=== PATIENT | male | born 1960 | race Caucasian/White ===

== ENCOUNTER → 2021-08-27 14:02 | Outpatient (CLI) | payer OTHER, SELFPAY ==
[2021-08-27 15:10] LABS: COVID19 -Nasal RAPID Negative (Negative)
== END ==
PROVIDERS: Referring Provider Internal Medicine Gastroenterology; Visit Provider Family Medicine Sleep Medicine
DX: Z20.822 Contact with and (suspected) exposure to COVID-19 (principal)
CPT/HCPCS: 87635; C9803

== ENCOUNTER 2021-08-30 06:44 | Day surgery (SDC) | payer OTHER, SELFPAY ==
[2021-08-30] MEDS: SODIUM CHLORIDE 0.9% 1,000 ML 100 ML IV (07:08)
[2021-08-30 07:11] VITALS: BP 133/78; PULSE 65; RESP 18; TEMP 36.6; O2SAT 98; BMI 27.1
--- NOTE | 2021-08-30 07:55 | PM.HP.1 ---
History of Present Illness History of Present Illness Date Patient Seen: 08/30/21 Time Patient Seen: 07:55 Chief complaint: SDC Narrative: Personal history of colon polyps. I reviewed my note from last month. Patient History Family & Social History Social History: household members spouse Tobacco & Substance use: Smoking Status Never smoker alcohol intake current alcohol intake frequency a few times a week Substance Use Type does not use Meds Home Medications and Allergies Home Medications Medication Instructions Recorded Confirmed Type Naproxen Sodium 250 mg PO PRN #0 09/30/10 History diazepam 5 mg tablet (Valium) 5 mg PO PRN #0 09/30/10 History methadone 5 mg tablet 5 mg PO PRN #0 09/30/10 History Allergies Allergy/AdvReac Type Severity Reaction Status Date / Time ASPIRIN Allergy Mild upset Uncoded 08/30/21 07:09 stomach and nausea OXYCODONE Allergy Mild violent, Uncoded 08/30/21 07:09 mean PENICILLIN Allergy Mild almost Uncoded 08/30/21 07:09 when a baby Review of Systems Review of Systems ROS: Yes All systems reviewed with the patient and are negative except as otherwise documented Exam Vital Signs (past 8 hours): - 08/30/21 07:11 Temperature 97.8 F Pulse Rate 65 Respiratory Rate 18 Blood Pressure 133/78 Pulse Oximetry 98 Oxygen Delivery Method Room Air Const General: cooperative and comfortable Orientation: alert HENMT Head: normocephalic Ears: external ears normal Nose: external nose normal Face and sinus: normal facial exam Mouth: oral mucosae normal Eyes General: appearance normal, both eyes and all related structures Neck Neck: normal visual inspection Chest Chest: normal inspection of the chest Resp Effort & Inspection: normal respiratory effort Cardio Rate: regular rate GI Inspection: normal to inspection Skin General: no rashes or lesions noted and No jaundice Neuro General: patient alert and moves all extremities Cognition: normal cognition Speech: speech normal Extrem General: no pedal edema Psych Appearance: grossly normal Assessment & Plan Assessment & Plan narrative: 60-year-old male with a personal history of colon polyps. Colonoscopy is planned for today. Time Spent With Patient Critical Care time: I spent a total of [] minutes of critical care time on this patient's care today; this time is exclusive of procedural time.
--- NOTE | 2021-08-30 07:56 | PM.PREOP ---
Pre-operative Note COVID-19 COVID-19 status: Negative Result date/Date tested (Pos, Neg/Pending): 08/27/21 Criteria for continued procedure: Possibility delay results in more complex future surgery or treatment Interval Note History & Physical reviewed/Exam performed by Physician: Yes Changes to H&P: No ASA Class (for procedural sedation): II
--- NOTE | 2021-08-30 08:17 | SUR.OPER ---
SHORT PERIOD OF EXTERNAL PRESSURE
--- NOTE | 2021-08-30 08:24 | P.OP.COLON_ITS ---
Operative Date/Time/Diagnoses Date of procedure: 08/30/21 Time of procedure: 08:24 Pre-op diagnosis: Colon polyps history Post-op diagnosis: same Procedure & Clinicians Study performed: Colonoscopy Same procedure as scheduled: Yes Indications: Colon polyps history Surgeon: Prashant Hankins Procedure Notes SCOAP/Timeout: Done Procedure in detail: After the risks and benefits were explained, written and verbal informed consent was obtained. The patient was brought into the procedure room and placed into the left lateral decubitus position. Please see nurse branch operations specialist notes for sedation details. Digital rectal examination was accomplished. The scope was introduced into the patient and advanced under direct visualization to the cecum as identified by the appendiceal orifice and ileocecal valve. The scope was s lowly withdrawn to carefully examine the mucosa for any defects or lesions. Comprehensive imaging was accomplished throughout the rectum including the dentate line. The colon was decompressed, the scope was then removed from the patient who tolerated the procedure well. Adult colonoscope Bowel prep adequate Scope withdrawal time: 6 minutes Sedation minutes: 20 Specimen(s): none sent Complications: none Impression: Slightly redundant colon. No significant polyps mass lesions or inflammatory features identified throughout. Grade 1 internal hemorrhoids. Endoscopic diagnosis: grade 1 hemorrhoids Post-procedure Plan for aftercare: Considering prior history of colon polyps, repeat colonoscopy is suggested for 7 years. Disposition: PACU
[2021-08-30 08:26] VITALS: BP 112/65; PULSE 53; RESP 16; TEMP 35.9; O2SAT 96
[2021-08-30 08:31] VITALS: BP 98/63; PULSE 64; RESP 14; O2SAT 96
[2021-08-30 08:38] VITALS: BP 102/67; PULSE 57; RESP 16; TEMP 35.9; O2SAT 95
== END 2021-08-30 09:09 | disposition home or self-care (01) ==
PROVIDERS: Referring Provider Internal Medicine Gastroenterology; Visit Provider Internal Medicine Gastroenterology
PROC: 0DJD8ZZ Inspection of Lower Intestinal Tract, Via Natural or Artificial Opening Endoscopic (ICD-10-PCS; CPT 45378; principal; 2021-08-30 08:00)
DX: Z12.11 Encounter for screening for malignant neoplasm of colon (principal); Z86.010 Personal history of colon polyps; K64.0 First degree hemorrhoids
CPT/HCPCS: 45378

== ENCOUNTER → 2024-11-08 10:39 | Outpatient (CLI) | payer OTHER, SELFPAY ==
--- NOTE | 2024-11-08 10:42 | DI.MRI.S_ITS ---
PROCEDURE: MR LUMBAR SPINE WO CON INDICATIONS: low back pain, rt groin pain TECHNIQUE: Noncontrast sagittal T1 spin echo and T2 fast echo, sagittal STIR, and T2 fast spin echo through the lumbar spine. In cases with scoliosis, additional coronal T2 fast spin echo may be performed. COMPARISON: None. FINDINGS: Image quality: Excellent. Alignment and Curvature: There is normal bony alignment. Bone Marrow: Degenerative endplate changes, most pronounced at L3-L4. Marrow is of normal overall signal. No acute vertebral body compression fractures. Spinal Cord: Conus medullaris terminates at the L1-L2 level. Visualized cord demonstrates normal signal and size. Paraspinous Soft Tissues: No paravertebral masses. T12-L1: Normal appearance. L1-L2: Normal appearance. L2-L3: Disc desiccation and mild height loss. Mild disc bulge. No central canal or neural foraminal stenosis. L3-L4: Disc desiccation and moderate height loss. Mild disc bulge. Facet arthropathy. No significant central canal stenosis. Mild right and no left neural foraminal stenosis. L4-L5: Facet arthropathy. No central canal stenosis. No significant neural foraminal stenosis. L5-S1: Disc desiccation and severe height loss. Minimal disc bulge. Facet arthropathy. No central canal stenosis. No significant neural foraminal stenosis. IMPRESSION: Multilevel degenerative changes of the lumbar spine without significant central canal or neural foraminal stenosis. Dictated by: Zane Zamorano M.D. on 11/08/2024 at 21:00 Approved by: Zane Zamorano M.D. on 11/08/2024 at 21:02
--- NOTE | 2024-11-08 10:42 | DI.US.S_ITS ---
PROCEDURE: US HERNIA INDICATIONS: low back pain, rt groin pain TECHNIQUE: Real-time focused scanning was performed of the inguinal region, with image documentation. COMPARISON: [facility], CT, CT ABDOMEN PELVIS WITH CONTRAST, 06/29/2023, 14:27. FINDINGS: Sonographic images in the inguinal region demonstrate no hernia. No abnormal mass. IMPRESSION: No visualized hernia or other abnormality in the inguinal region. Dictated by: Nieves Rosales M.D. on 11/09/2024 at 16:37 Approved by: Nieves Rosales M.D. on 11/09/2024 at 16:38
== END ==
PROVIDERS: PCP Nurse Practitioner Gerontology; Referring Provider Nurse Practitioner Gerontology; Visit Provider Nurse Practitioner Gerontology
DX: M51.369 Other intervertebral disc degeneration, lumbar region without mention of lumbar back pain or lower extremity pain (principal); M47.816 Spondylosis without myelopathy or radiculopathy, lumbar region; K40.91 Unilateral inguinal hernia, without obstruction or gangrene, recurrent
CPT/HCPCS: 72148; 76705